=== PATIENT | female | born 1990 | race Hispanic/Latino ===

== ENCOUNTER 2017-10-25 21:23 | Inpatient (IN) | payer OTHER, MEDICAID ==
--- NOTE | 2017-10-25 21:58 | History and Physical Report ---
History of Present Illness Date of examination: 10/25/17 Chief complaint: Ruptured membranes History of present illness: 27-year-old at 37+2 presents with report of rupture of membranes since 5 PM, she is a [facility] patient who is incarcerated. Her care has been complicated by poor care otherwise unremarkable per patient. Past History Past Medical History: no pertinent history Past Surgical History: section (# 2) [employer]ODING [employer] History: chlamydia. denies: gonorrhea, hepatitis B, hepatitis C, herpes, HIV, syphilis, trichomonas Social history: single, smoking, alcohol abuse, IV drug use, full code - Obstetrical History Expected Date of Delivery: 11/13/17 Actual Gestation: 37 Week(s) 2 Day(s) Para: 3 Hx # Term Pregnancies: 2 Medications and Allergies Allergies Allergy/AdvReac Type Severity Reaction Status Date / Time No Known Allergies Allergy Unverified 10/25/17 21:59 Review of Systems Constitutional: no fever, no chills, no fatigue, no weakness, no malaise Cardiovascular: no chest pain, no orthopnea, no syncope, no lightheadedness, no shortness of breath, no dyspnea on exertion, no paroxysmal nocturnal dyspnea, no high blood pressure Respiratory: no cough, no cough with sputum, no hemoptysis, no shortness of breath, no dyspnea on exertion Gastrointestinal: no abdominal pain, no nausea, no vomiting Genitourinary: leakage of fluid, no vaginal bleeding, no vaginal discharge, no contractions - Vital Signs Vital signs: Vital Signs Pulse Pulse Ox 92 H 98 10/25/17 21:42 10/25/17 21:42 Temp Pulse Resp BP Pulse Ox 91 H 98 10/25/17 21:52 10/25/17 21:52 - Physical Exam Cardiovascular: Regular rate, Normal S1, Normal S2 Lungs: Positive: Clear to auscultation, Normal air movement Abdomen: Positive: normal appearance, soft. Negative: distention, tenderness, guarding, rigidity Genitourinary (Female): Positive: normal external genitalia Vulva: both: normal Uterus: Positive: enlarged (EFW ~ 3600) Adnexa: both: normal Extremities: Positive: normal - Obstetrical FHR: category 1 Results All other labs normal. Assessment and Plan A: 27-year-old at 37+2 weeks with suspected rupture of membranes -Cat 1 tracing -2 prior C-sections -Incarcerated P: -Admit -Rule out rupture -Imaging study -Routine labs -Proceed with 3rd repeat LTCS if rupture confirmed - Patient Problems (1) 37 weeks gestation of Current Visit: Yes Status: Acute (2) Rupture of amniotic sac under 24 hours before onset of labor Current Visit: Yes Status: Acute (3) History of 2 sections Current Visit: Yes Status: Acute (4) Limited care in third trimester Current Visit: Yes Status: Acute
--- NOTE | 2017-10-25 23:05 | Event Note ---
Date: 10/25/17 Sonogram just completed. Unofficial report per observation assistant shows IUP at ~ 34 weeks with BRADLY of ~ 13. An incidental finding of a left parietal mass was noted on scan. Plan at this point is to observe patient overnight. Consider MFM input in the a.m. if undelivered. Notify NICU of above finding.
[2017-10-25 23:21] LABS: Hematocrit 33.4 % (30.3-42.9); Hemoglobin 11.2 gm/dl (10.1-14.3); Mean Corpuscular HGB Conc 34 % (30-34); Mean Corpuscular Hemoglobin 30 pg (28-32); Mean Corpuscular Volume 88 fl (79-97); Platelet Count 168 K/mm3 (140-440); Red Blood Count 3.79 M/mm3 (3.65-5.03); Red Cell Distribution Width 14.1 % (13.2-15.2)
[2017-10-26] MEDS ORDERED: STADOL ONE (00:02)
[2017-10-26] MEDS ORDERED: STADOL IV PRN (00:05)
[2017-10-26 00:38] LABS: Amphetamine Screen,Urine PRESUMPTIVE NEGATIVE; Benzodiazepines Screen,Urine PRESUMPTIVE NEGATIVE; Cannabinoid Screen,Urine PRESUMPTIVE NEGATIVE; Cocaine Screen,Urine PRESUMPTIVE NEGATIVE; Methadone Screen,Urine PRESUMPTIVE NEGATIVE; Opiate Screen,Urine PRESUMPTIVE NEGATIVE
[2017-10-26] MEDS ORDERED: LACTATED RINGERS 1,000 ML ONE (00:39)
[2017-10-26] MEDS ORDERED: BICITRA PO ONE ×2 (00:43→00:51)
[2017-10-26] MEDS ORDERED: PHENERGAN PR PRN (00:56)
[2017-10-26] MEDS ORDERED: NARCAN 0.4 MG/1 ML IV PRN ×2 (00:56→02:39)
[2017-10-26] MEDS ORDERED: DILAUDID IV PRN ×2 (00:56→05:07)
[2017-10-26] MEDS ORDERED: ZOFRAN IV PRN (00:56)
[2017-10-26] MEDS ORDERED: PHENERGAN PO PRN (00:56)
--- NOTE | 2017-10-26 00:56 | Anesthesia Consultation ---
Anesthesia Consult and Med Hx Date of service: 10/26/17 - Airway Anesthetic Teeth Evaluation: Poor, Chipped Mental/Hyoid Distance: Adequate Mallampati Class: Class II Intubation Access Assessment: Good - Pulmonary Exam CTA: Yes - Cardiac Exam Cardiac Exam: RRR - Pre-Operative Health Status ASA Pre-Surgery Classification: ASA3, Emergency Proposed Anesthetic Plan: Spinal - Pulmonary Hx Smoking: Yes (stopped smoking a month ago 2/2 incarceration) Hx Asthma: No - Cardiovascular System Hx Hypertension: No - Central Nervous System Hx Seizures: No Hx Psychiatric Problems: No - Endocrine Hx Renal Disease: No Hx Hypothyroidism: No Hx Hyperthyroidism: No - Hematic Hx Anemia: No Hx Sickle Cell Disease: No
--- NOTE | 2017-10-26 00:56 | Anesthesia Day of Surgery ---
Anesthesia Day of Surgery - Day of Surgery Patient Examined: Yes Patient H&P Reviewed: Yes Patient is NPO: Yes
[2017-10-26] MEDS ORDERED: fentaNYL-BUPIV 2 MCG/ML-0.125% 200 MCG/100 ML BAG EPIDURAL SCH (01:00)
[2017-10-26] MEDS ORDERED: ANCEF/STERILE WATER 2 GM/20 ML IV NR (01:00)
[2017-10-26] MEDS ORDERED: PITOCin/NS 20 UNIT/1000ML DRIP 20 UNITS/1,000 ML BAG IV SCH ×2 (01:00→03:00)
[2017-10-26] MEDS ORDERED: SODIUM CHLORIDE FLUSH SYRINGE 10 ML IV NR ×2 (01:00→03:00)
[2017-10-26] MEDS ORDERED: PEPCID IV NR (01:00)
[2017-10-26] MEDS ORDERED: REGLAN IV NR (01:00)
[2017-10-26] MEDS ORDERED: ASTRAMORPH PF 10MG/10ML ONE (01:04)
--- NOTE | 2017-10-26 01:06 | Ultrasound Report ---
FINAL REPORT EXAM: US OB > = 14 WEEKS FETUS HISTORY: NO PNC/PROM TECHNIQUE: Routine trans abdominal imaging was obtained the pelvis including Doppler interrogation of the fetus. FINDINGS: There is a single viable intrauterine in cephalic presentation with an estimated gestational age of 33 weeks 6 days based on sonographic criteria. The heart rate is 154 BPM. The cervical length is 3.2 cm. The BRADLY is 13.0 cm which is normal. The placenta is fundal in position and is grade 1. There are no gross anomalies involving the stomach, kidneys, bladder, diaphragm, or heart. The longitudinal image of the spine do not show any abnormalities. There is an indeterminate round-shaped lesion in the left side of the head measuring 4.1 cm in diameter. This is indeterminate. The estimated weight is 2249 grams. IMPRESSION: Single viable intrauterine in cephalic presentation, 33 weeks 6 days as described. No evidence of placental abruption. BRADLY of 13.0 cm which is normal. Indeterminate 4.1 cm round shaped lesion in the left-sided head which is indeterminate.
[2017-10-26] MEDS ORDERED: NACL 0.9% IR ONE (01:35)
[2017-10-26] MEDS ORDERED: WATER FOR IRRIG STERILE IR ONE (01:35)
[2017-10-26] MEDS ORDERED: SUBLIMAZE ONE (02:03)
--- NOTE | 2017-10-26 02:35 | Operative Report ---
Operative Report Operative Report: DATE: 10/26/2017 PREOPERATIVE DIAGNOSIS: 27-year-old at 37+1 week, ruptured membranes, active labor, limited care, 2 prior C-sections, Currently incarcerated POSTOP DIAGNOSIS: As above NAME OF PROCEDURE: 3rd Repeat low transverse section SURGEON: DASHA GUTIÉRREZ MD ACCOUNTS SPECIALIST: Karine ANESTHESIA: Spinal EBL: 600 mL PATHOLOGY SPECIMEN: None URINE OUTPUT: 1 50 mL BRIEF NOTE: Patient admitted to rule out rupture. Initial plan was observation overnight however, patient found to be in labor at 5-6 cm dilated. FINDINGS: Obvious myometrial window on the uterus, Male in cephalic presentation, time of 1:45 AM, weight 7 lbs. 3 oz. [id number] grams, Apgars 8 and 9, normal uterus (except myometrial window), tubes and ovaries bilaterally, moderate adhesions, Hematoma on the left side of the uterus controlled with interrupted stitches DESCRIPTION OF PROCEDURE: She was taken to the operating room where she was prepped and draped in a sterile fashion, she was placed in the dorsal supine position. Pfannenstiel incision was performed through her prior incisional scar which was carried through to underlying rectus fascia which was scored in the midline. The fascial incision was extended laterally with use of Ludwig scissors, the anterior leaf was then grasped with Kochers forceps elevated dissected sharply and bluntly off the underlying rectus in a similar fashion inferior leaf was grasped elevated dissected sharply and bluntly off the underlying rectus. The rectus was in the midline, good visualization of bladder was noted. A bladder blade was placed in the patient's pelvic cavity ; bladder flap could not be created. A hysterotomy incision was then performed in the lower segment with meconium stained amniotic fluid noted, hysterotomy incision was extended laterally with the use of fingers manually. in cephalic presentation was delivered in the usual manner; cord was clamped and cut infant was handed over to waiting nursery staff. The placenta was then delivered manually intact, the uterus was exteriorized cleared of all clots and debris. Hysterotomy incision was then closed in a running locked fashion with 0 Vicryl on a CTX; using the same suture was imbricate the initial layer. Interrupted [id number] stitches were used to obtain hemostasis. A hematoma was noted to be forming on the left side of the uterus near the cervico uterine junction. This was controlled with interrupted figure of eight stitches. Uterus was then returned to the patient's pelvic cavity; peritoneal edges were grasped with hemostats and Liz's elevated copious irrigation was used to clear the gutters of all clots and debris. Tercel hemostatic agent was then applied to the hysterotomy incision as a means to prevent future bleeding. The peritoneal layer was then closed in a running fashion with 3-0 Vicryl and the rectus was reapproximated with a single [id number] stitch. The fascia was closed in a running fashion with 0 Vicryl and tied in the opposite side. The subcutaneous layer was irrigated and then reapproximated with interrupted [id number] stitches. The skin was closed in a subcuticular manner with 4- 0 Vicryl. She tolerated the procedure well lap and instrument counts were correct 2 she did receive 2 g of Ancef prior to incision she is transferred to PACU in stable condition thank you.
[2017-10-26] MEDS ORDERED: TYLENOL PO PRN (02:39)
[2017-10-26] MEDS ORDERED: SENOKOT PO PRN (02:39)
[2017-10-26] MEDS ORDERED: TORADOL IV PRN (02:39)
[2017-10-26] MEDS ORDERED: LANSINOH TP PRN (02:39)
[2017-10-26] MEDS ORDERED: TUCKS PAD TP PRN (02:39)
[2017-10-26] MEDS ORDERED: MILK OF MAGNESIA PO PRN (02:39)
[2017-10-26] MEDS ORDERED: MYLICON PO PRN (02:39)
[2017-10-26] MEDS ORDERED: D5LR 1,000 ML IV SCH (03:00)
[2017-10-26 03:47] LABS: Total Cells Counted 100
[2017-10-26 03:48] LABS: RBC Morphology Normal
[2017-10-26 03:49] LABS: Platelet Estimate Consistent w Auto
[2017-10-26] MEDS ORDERED: BENADRYL IV PRN (05:03)
[2017-10-26 06:52] LABS: Bilirubin,Urine NEG (Negative); Blood,Urine NEG (Negative); Color,Urine Yellow (Yellow); Mucus,Urine FEW /HPF; Protein,Urine <15 mg/dL mg/dL (Negative); Urobilinogen,Urine < 2.0 mg/dL (<2.0)
[2017-10-26] MEDS: FEOSOL PO SCH (10:40)
[2017-10-26] MEDS: PRENATAL VITAMIN PO SCH (10:40)
--- NOTE | 2017-10-26 11:24 | Post Anesthesia Evaluation ---
- Post Anesthesia Evaluation Patient Participated: Yes Airway Patent: Yes Stable Respiratory Function: Yes Nausea/Vomiting: No Temp > 96.8F: Yes Pain Manageable: Yes Adequeate Hydration: Yes Anesthesia Complications: No Block Receding Appropriately: Yes Patient on Ventilator: No
[2017-10-26 14:56] LABS: Hematocrit 30.2 % (30.3-42.9)
[2017-10-26] MEDS: PERCOCET 5/325 PO PRN ×2 (16:30→22:09)
[2017-10-26] MEDS: MOTRIN PO PRN (22:09)
[2017-10-27] MEDS: FEOSOL PO SCH (07:54)
[2017-10-27] MEDS: PRENATAL VITAMIN PO SCH (07:55)
[2017-10-27] MEDS: MOTRIN PO PRN ×2 (07:55→14:10)
[2017-10-27] MEDS: PERCOCET 5/325 PO PRN ×3 (07:56→19:56)
--- NOTE | 2017-10-27 16:14 | Progress Note ---
Assessment and Plan A: POD#1 s/p Repeat c/s Stable P: Routine PP/PO care Encouraged ambulation in room Abdominal Binder Subjective - Subjective Date of service: 10/27/17 Principal diagnosis: S/P section Interval history: See H&P and Operative note Patient reports: appetite normal, voiding normally, pain well controlled, flatus , ambulating normally, no bowel movement : doing well, bottle feeding Objective - Vital Signs Latest vital signs: Vital Signs Temp Pulse Resp BP BP Pulse Ox 10/27/17 08:14 98.4 F 85 18 105/73 100 10/27/17 07:56 20 10/27/17 07:55 20 10/27/17 00:58 98.2 F 76 18 92/56 10/26/17 19:41 98.2 F 86 18 103/62 10/26/17 16:43 97.5 F L 92 H 18 103/66 100 Intake and Output 10/27/17 10/27/17 10/27/17 07:59 15:59 23:59 Intake Total 360 Balance 360 Intake: Intake, Free Water 360 - Exam Breasts: Present: normal Cardiovascular: Present: Regular rate, Normal S1, Normal S2 Lungs: Present: Clear to auscultation, Normal air movement Abdomen: Present: normal appearance, soft, normal bowel sounds Vulva: both: normal Uterus: Present: firm, fundal height below umbilicus (-1) Extremities: Present: normal Deep Tendon Reflex Grade: Normal +2 Incision: Present: normal, dry, intact, dressed (Covered with pressure dressing. CDI)
[2017-10-27] MEDS ORDERED: BENADRYL PO PRN (23:04)
[2017-10-28] MEDS: MOTRIN PO PRN ×3 (00:46→16:25)
[2017-10-28] MEDS: PERCOCET 5/325 PO PRN ×2 (06:48→16:25)
[2017-10-28] MEDS: FEOSOL PO SCH (09:51)
[2017-10-28] MEDS: PRENATAL VITAMIN PO SCH (09:51)
--- NOTE | 2017-10-28 11:06 | Progress Note ---
Assessment and Plan A: POD #2 Stable [facility] In[facility] P: Follow Routine PostOp Orders D/C to [facility] today Subjective - Subjective Date of service: 10/28/17 Principal diagnosis: S/P section Patient reports: appetite normal, voiding normally, pain well controlled, flatus , ambulating normally : doing well, bottle feeding Objective - Vital Signs Latest vital signs: Vital Signs Temp Pulse Resp BP BP Pulse Ox 10/28/17 08:08 98.2 F 86 18 99/71 99 10/28/17 00:00 98.2 F 89 18 120/71 10/27/17 19:56 18 10/27/17 17:36 122.0 F H 93 H 18 108/68 100 Intake and Output 10/27/17 10/28/17 10/28/17 22:59 06:59 14:59 Other: # Voids Void 1 - Exam Breasts: Present: normal Cardiovascular: Present: Regular rate Lungs: Present: Clear to auscultation, Normal air movement Abdomen: Present: normal appearance, soft, normal bowel sounds Uterus: Present: normal, firm, fundal height below umbilicus Extremities: Present: normal Incision: Present: normal, dry, intact
--- NOTE | 2017-10-28 11:08 | Discharge Summary ---
Providers - Providers Date of Admission: 10/25/17 23:10 Date of discharge: 10/28/17 Attending physician: JENNIFER PHELPS MD Primary care physician: JENNIFER PHELPS MD Hospitalization Reason for admission: rupture of membranes Delivery: Episiotomy: none Laceration: none Incision: normal, dry, intact Other procedures: none complications: none Discharge diagnosis: IUP at term delivered [place] baby: male Condition at discharge: Good Disposition: DC-01 TO HOME OR SELFCARE Plan - Discharge Medications Prescriptions: Ibuprofen [Motrin 600 MG tab] 600 mg PO Q8H PRN #30 tablet PRN Reason: Pain Multivitamin with Iron [Multivitamins with Iron] 1 each PO DAILY #30 tablet oxyCODONE /ACETAMINOPHEN [Percocet 5/325] 1 tab PO Q6HR PRN #30 tablet PRN Reason: Pain - Provider Discharge Summary Activity: routine, no sex for 6 weeks, no heavy lifting 4 weeks, no strenuous exercise Diet: routine Instructions: routine Additional instructions: [] Smoking cessation referral if applicable(refer to patient education folder for contact #) [] Refer to [facility] Booklet Call your doctor immediately for: * Fever > 100.5 * Heavy vaginal bleeding ( >1 pad per hour) * Severe persistent headache * Shortness of breath * Reddened, hot, painful area to leg or breast * Drainage or odor from incision. * Keep incision clean and dry at all times and follow doctor's instructions regarding bathing/showering - Follow up plan Follow up: JENNIFER PHELPS MD [Primary Care Provider] - 7 Days
[2017-10-28 16:54] VITALS: BP 115/80
== END 2017-10-28 18:20 | DRG 766 ==
LOC: TRG 21:23 → LD 21:34 → TRG 23:10 → OBSVTOIN 23:10 → EEVIPCON 23:10 → OB 10-26 04:28
PROVIDERS: ADMIT Obstetrics & Gynecology; ATTEND Obstetrics & Gynecology
PROC: 10D00Z1 Extraction of Products of Conception, Low, Open Approach (ICD-10-PCS; principal; 2017-10-26)
DX: O34.211 Maternal care for low transverse scar from previous cesarean delivery (principal); Z86.19 Personal history of other infectious and parasitic diseases; Z3A.37 37 weeks gestation of pregnancy; Z37.0 Single live birth; Z87.891 Personal history of nicotine dependence
CPT/HCPCS: 36415; 76805; 80307; 81001; 85007; 85014; 85018; 85025; 85461; 86592; 86706; 86762; 86850; 86900; 86901; 87806; J0595; J0690; J1200; J1885; J2274; J2590; J2765; J3010; J7120; J7121